=== PATIENT | male | born 1955 | race Caucasian/White ===

== ENCOUNTER → 2022-05-21 11:44 | Outpatient (CLI) | payer MEDICARE, OTHER, SELFPAY ==
--- NOTE | ~2022-05-21 | XR_ITS ---
XR hip RT min 2V DATE: 05/21/2022 12:00 INDICATION: Right hip pain, decreased range of motion. No injury. TECHNIQUE: AP and lateral views COMPARISON: None FINDINGS: There is severe right hip joint space narrowing and very prominent hypertrophic spurring of the femoral head and acetabulum, consistent with severe osteoarthritis. No fracture, dislocation, avascular necrosis or bone destruction is evident. Status post left total hip arthroplasty. The pubic symphysis and sacral lytic joints are intact. IMPRESSION: Severe right hip osteoarthritis Status post left total hip arthroplasty Reviewed, dictated and finalized at location A.
== END ==
PROVIDERS: PCP Family Medicine Adolescent Medicine; Visit Provider Family Medicine Adolescent Medicine
DX: M16.11 Unilateral primary osteoarthritis, right hip (principal)
CPT/HCPCS: 73502

== ENCOUNTER 2022-08-19 13:53 | Outpatient (CLI) | payer MEDICARE, OTHER, SELFPAY ==
--- NOTE | 2022-08-19 14:40 | ECG_ITS ---
Measurements Intervals [place] Rate: 67 P: -7 GA: 153 QRS: 91 QRSD: 95 T: 10 QT: 399 QTc: 421 Interpretive Statements SINUS RHYTHM RIGHT AXIS DEVIATION MINIMAL Q WAVES- INFERIOR LEADS BASELINE ARTIFACT- I, II, III, AVR, AVL, AVF, V1-V2 BORDERLINE ECG NO PREVIOUS ECG AVAILABLE FOR COMPARISON Electronically Signed On 08-19-2022 15:17:12 PARENT COACH by Karl Terry D.O.
[2022-08-19 15:08] LABS: Basophils Absolute Auto 0.1 K/mm3 (0.0-0.1); Basophils Percent Auto 0.7 % (0.2-1.2); Eosinophils Percent Auto 0.5 % (0-4.4); Hematocrit 42.7 % (42.0-52.0); Hemoglobin 14.2 g/dL (14.0-18.0); Immature Granulocyte Absolute 0.02 K/mm3 (0.00-0.031); Immature Granulocyte Percent A 0.3 % (0-0.5); Lymphocytes Absolute Auto 1.52 K/mm3 (0.9-3.2); Lymphocytes Percent Auto 20.2 % (18.3-44.2); Mean Corpuscular HGB Conc 33.3 g/dl (32-36); Mean Corpuscular Hemoglobin 29.8 pg (26-34); Mean Corpuscular Volume 89.7 fl (80-100); Monocytes Absolute Auto 0.6 K/mm3 (0.1-0.6); Monocytes Percent Auto 7.5 % (2.6-8.5); Neutrophils Absolute Auto 5.3 K/mm3 (1.3-6.7); Neutrophils Percent Auto 70.8 % (45.5-73.1); Platelet Count Result 240 k/mm3 (150-375); Red Blood Count 4.76 M/mm3 (4.6-6.20); Red Cell Distribution Width 13.3 % (11.5-14.5); White Blood Count 7.5 K/mm3 (4.5-10.0)
[2022-08-19 15:10] LABS: Appearance Urine Clear (Clear); Bilirubin Urine 1+ (Negative); Blood Urine Negative (Negative); Color Urine Yellow (Yellow); Glucose Urine UA Negative (Negative); Ketones Urine Trace mg/dL (Negative); Leukocyte Esterase Ur Negative LEU/UL (Negative); Nitrate Urine Negative (Negative); Protein Urine 2+ mg/dL (Negative); Specific Grav Ur >= 1.030 (1.001-1.035)
[2022-08-19 15:19] LABS: Bacteria Urine Trace /hpf; Mucus Urine Heavy /lpf; RBC Urine 0-2 /hpf (0-2); WBC Urine 0-3 /hpf
[2022-08-19 15:21] LABS: Add Urine Microscopic? YES
[2022-08-19 15:24] LABS: Albumin Level 4.5 g/dL (3.5-5.1); Anion Gap 4 mmol/L (8-16); Blood Urea Nitrogen 20 mg/dL (9-20); Calcium 8.9 mg/dL (8.4-10.2); Carbon Dioxide 29 mmol/L (22-30); Chloride 104 mmol/L (98-107); Estimated Glomerular Filt Rate > 60; Glucose 96 mg/dL (65-110); Potassium 3.8 mmol/L (3.4-5.0); Sodium 137 mmol/L (137-145)
[2022-08-19 15:27] LABS: Urine Cotinine NEGATIVE
[2022-08-19 15:33] LABS: INR 1.1; Prothrombin Time 13.4 Seconds (11.1-14.7)
[2022-08-19 15:34] LABS: Partial Thromboplastin Time 26.5 SECONDS (22.3-36.8)
[2022-08-20 05:34] LABS: Hemoglobin A1C 4.8 % (<5.7)
== END 2022-08-19 13:54 | disposition home or self-care (01) ==
PROVIDERS: PCP Family Medicine Adolescent Medicine; Visit Provider Orthopaedic Surgery
DX: Z01.818 Encounter for other preprocedural examination (principal); M16.11 Unilateral primary osteoarthritis, right hip
CPT/HCPCS: 80048; 80307; 81001; 82040; 83036; 85025; 85610; 85730; 87081; 93005

== ENCOUNTER 2022-09-03 18:53 | Observation (INO) | payer MEDICARE, OTHER, SELFPAY ==
--- NOTE | 2022-08-19 13:54 | PC.NURSE ---
PRE-OP INSTRUCTIONS, PLEASE READ CAREFULLY Report to the Outpatient Waiting Room, entrance under the green pavilion located off [facility], at time _0600_ on date _09/02/22_. Planned Procedure Time: _0730_. PACK A SMALL OVERNIGHT BAG AND LEAVE IN THE CAR ALONG WITH YOUR WALKER Time changes happen often and if your time is changed the preop area will call you the afternoon before. - You and your visitor will be asked to self-screen and do not enter if you have any COVID symptoms. - Only one visitor is requested with a max of two and NO children visitors are allowed at this time. - The patient visitor may be requested to leave or wait in car when not with patient due to distancing restrictions. - A mask is optional within the hospital at this time. -VISITING HOURS 8AM-8PM, LIMIT OF 2 VISITORS AT A TIME Patients may have clear liquids (water, carbonated beverages, clear teas, apple juice) until 3 hours prior to surgery (0430 AM) with a maximum of 20 ounces. - No food from midnight until time of surgery Take the following medications with a SIP of water the morning of surgery: _NONE_ DO NOT STOP ANY OF YOUR OTHER PRESCRIPTION MEDICATIONS PRIOR TO SURGERY ?EXCEPT THE FOLLOWING Medications to discontinue per DR. NICOLE'S INSTRUCTIONS - _IBUPROFEN_ Medications to discontinue per ANESTHESIA - _VITAMIN B COMPLEX 3 DAYS PRIOR TO SURGERY, Date to take last dose 08/29/22_ Please no make-up, nail togolese, hairspray, perfume, deodorant, or body powder the day of surgery. No jewelry (including any body piercings) or valuables the day of surgery, leave them at home. Please take a shower or bath the night before, or the morning of, surgery with an antibacterial soap. Wear comfortable, loose fitting clothing. - Jewelry must be removed prior to entering the operating room. Rings and piercings that are not removed may be cut off. - The hospital will not accept responsibility for valuables. - Please leave all valuables, including medications, at home the day of surgery. If you are going home after surgery, a licensed spotter driver must drive you home. - NO public transportation without another adult if you receive anesthesia. - We recommend that an adult stay with you for 24 hours following discharge. - We also recommend that you do not drive, make important decision, drink alcoholic beverages, or take any drugs that were not prescribed by your health care provider for at least 24 hours after your discharge time. Follow any additional instructions given to you from your surgeon. If you or anyone in your household have experienced Covid symptoms in the past week, please notify your surgeon or the nurse liaison at the phone number below for possible testing. Instructions given to _PATIENT_and asked if any additional questions and then verbalized understanding. Patient advised to call surgeon office or pre surgery nurse liaison [phone] if any additional questions.
[2022-08-19 14:20] VITALS: BP 134/68; PULSE 66; RESP 20; TEMP 37.1; O2SAT 98; BMI 27.8
--- NOTE | 2022-09-01 15:32 | WPDANESEPPF ---
Anes - Initial Pre Proc Eval Procedure: Operation Date: 09/02/22 07:30 Proposed Procedures p Right Total Hip Arthroplasty - Connor Slater MD Date/Time: 09/01/22 15:32 Surgeon: Connor Slater MD Pre Op Diagnosis: right hip DJD Patient Data Age: 66 Gender: M Height: 1.78 m Weight: 88.2 kg Last Vital Signs Temp 37.1 C 08/19/22 14:20 Pulse 66 08/19/22 14:20 Resp 20 08/19/22 14:20 BP 134/68 08/19/22 14:20 Pulse Ox 98 08/19/22 14:20 O2 Del Method Room Air 08/19/22 14:20 Allergies Allergy/AdvReac Type Severity Reaction Status Date / Time Penicillins Allergy Unknown ???REACTION Verified 09/02/22 06:05 CHILD Home Medications Medication Instructions Recorded Confirmed Type ibuprofen 200 mg capsule 200 mg PO Q6H PRN Pain 07/03/22 09/02/22 History vitamin B complex (Vitamins B 1 cap PO DAILY 07/03/22 09/02/22 History Complex capsule) coenzyme Q10 100 mg capsule 100 mg PO DAILY 08/19/22 09/02/22 History (CoQ-10) chlorhexidine gluconate 4 % 1 applic topical ONCE #237 mL 08/22/22 Rx topical liquid (Hibiclens) ECG: Date of Service: 08/19/22 Procedure(s): CA 12 lead EKG Accession Number(s): [id number] cc: ~ ? Measurements Intervals? [place]? Rate: ? 67 ? P:? -7 SC: ? 153? QRS:? 91 QRSD: ? 95 ? T:? 10 QT: ? 399? QTc:? 421? Interpretive Statements SINUS RHYTHM RIGHT AXIS DEVIATION MINIMAL Q WAVES- INFERIOR LEADS BASELINE ARTIFACT- I, II, III, AVR, AVL, AVF, V1-V2 BORDERLINE ECG NO PREVIOUS ECG AVAILABLE FOR COMPARISON Electronically Signed On 08-19-2022 15:17:12 SWISS MACHINIST by Karl Terry D.O. Patient hx anesthesia problems: none Family hx anesthesia problems: none Results Review: All pre-operative results and documents have been reviewed as part of the pre-operative evaluation. [facility] Past Medical History Medical History (Updated 09/01/22 @ 15:33 by Reginaldo Amin MD) Anxiety Chronic right hip pain Degenerative joint disease (DJD) of hip Overweight (BMI 25.0-29.9) Unilateral primary osteoarthritis, right hip Surgical History Surgical History History of left hip replacement Family History Family History Father Heart disease Hypertension Mother Lung cancer smoker Social History Social History Smoking packs per day: 1 Smoking cigarettes per day: 20.0 Years smoked: 25 Smoking pack-years: 25.00 Smoking status: Former smoker Tobacco type: cigarettes Second hand tobacco smoke exposure: No Smoking end date: 07/20/99 Additional smoking assessment comments: PT DENIES ALL FORMS OF TOBACCO USE Alcohol intake: current Drinks per week: 7 Alcohol use details: 10-14 BEERS/WEEK Substance use: never Substance use type: does not use Living arrangements: with family Occupation/Education: occupation Gender identity (if verbalized by the patient): Male Sexual Orientation (if Verbalized by the Patient): Straight or Heterosexual Spiritual care concerns: Yes Agree to blood products: Yes Anes - Eval Final PreProcedure Day of Procedure 09/01/22 15:32 Patient weight: overweight Heart: regular rate and rhythm Lungs: clear to auscultation and normal air movement Airway: Mallampati scale class II Neurological: alert and oriented Last oral intake: >/= 8 hours ASA classification: II Emergent: no Anesthetic plan: proceed Anesthesia type and monitoring: general ETT Results Review: All pre-operative results and documents have been reviewed as part of the pre-operative evaluation. In
[2022-09-02] VITALS (14 sets, daily range): BP systolic 103–147; BP diastolic 50–93; PULSE 58–81; RESP 12–20; TEMP 35.6–36.7; O2SAT 95–100; BMI 26.7
[2022-09-02] MEDS: ACETAMINOPHEN 500 MG TABLET 1000 MG PO (06:06)
[2022-09-02] MEDS: TRANEXAMIC ACID 1,000MG/ISO100 1,000 MG/100 ML BAG 200 MG IVPB (06:56)
--- NOTE | 2022-09-02 07:10 | WPDHPUPDATE1 ---
History and Physical Update Update Date/Time: 09/02/22 07:10 History and Physical has been reviewed, including an updated exam of the patient. There are NO changes in the patient's condition. Risks, benefits, and alternatives have been discussed and questions answered. Patient agrees to proceed with procedure.
[2022-09-02] MEDS: ceFAZolin 2 GM/D5W 50 ML 2 GM/50 ML BAG IVPB ×3 (07:35→23:09)
[2022-09-02] MEDS: TRANEXAMIC ACID 1,000 MG/10 ML AMPUL 1000 MG IV PUSH (09:07)
--- NOTE | 2022-09-02 09:52 | W.PM.PROC2 ---
Procedure Note - Detailed Date of Procedure 09/02/22 Pre-op Diagnosis right hip DJD Post-op Diagnosis Same Procedure Performed R MENDOZA Surgeon Connor Slater MD Anesthesia General Description of Procedure THE PATIENT WAS TAKEN TO THE OPERATING ROOM IN STABLE CONDITION AND WAS PLACED IN THE LATERAL DECUBITUS AND THE RIGHT LOWER EXTREMITY WAS PREPPED AND DRAPED IN THE STERILE FASHION. INCISION WAS MADE IN THE POSTERIOR LATERAL SIDE OF THE HIP, DOWN TO THE FASCIA LAYER. THE FASCIA WAS INCISED. THE HIP WAS EXPOSED. THE SHORT EXTERNAL ROTATORS WERE EXPOSED. THE SCIATIC NERVE WAS IDENTIFIED. INCISION WAS MADE THROUGH THE SHORT EXTERNAL ROTATORS AND THE CAPSULE OF THE HIP JOINT. THE HIP WAS DISLOCATED. AN OSTEOTOMY WAS MADE TO THE FEMORAL NECK ABOUT 1 CM PROXIMAL TO THE LESSER TROCHANTER. THE ACETABULUM WAS EXPOSED. THERE WAS SEVERE DJD SEEN. BEGINNING WITH A 50 REAMER THE ACETABULUM WAS REAMED TO 53 MM. A 53 MM TRIAL WAS PLACED IN 35 DEG OF ABDUCTION AND ANTEVERSION WAS IN ALIGNMENT WITH THE TRANS ACETABULAR LIGAMENT. THE FIT WAS EXCELLENT. THE TRIAL WAS REMOVED. A 54 MM BIOMET G7 COMPONENT WAS THEN TAPPED IN TO PLACE IN 35 DEG OF ABDUCTION AND ANTEVERSION IN ALIGNMENT WITH THE TRANSVERSE ACETABULAR LIGAMENT. THE FIT WAS EXCELLENT. THE ACETABULAR LINER WAS PLACED AND CHECKED FOR STABILITY. NEXT THE FEMUR WAS PREPARED WITH INITIAL CANAL FINDER THEN SEQUENTIAL BROACHING WITH A TAPERLOC HIP SYSTEM, UNTIL A 10 BROACH FIT WELL IN 15 OF ANTEVERSION. A 0 HIGH OFFSET NECK WITH 36 MM HEAD TRIAL WAS PLACED. THE SHUCK TEST WAS EXCELLENT AND THE STABILITY IN FLEXION AND ROTATION WAS EXCELLENT. LEG LENGTHS WERE GROSSLY EQUAL. TRIALS WERE REMOVED. A BIOMET TAPERLOC 10 STEM WAS PLACED WITH A HIGH OFFSET NECK. THE FIT WAS EXCELLENT IN 15 DEG OF ANTEVERSION. A 0 CERAMIC 36 MM FEMORAL HEAD WAS PLACED. THE HIP WAS TRIALED AND THE STABILITY WAS EXCELLENT WERE THE LEG LENGTHS AND THE SHUCK TEST. THE WOUND WAS IRRIGATED WITH STERILE BETADINE AND WATER FOR 3 MIN. THEN WASHED AGAIN. THE SCIATIC NERVE WAS IDENTIFIED AGAIN. THE CAPSULE AND THE EXTERNAL ROTATORS WERE APPROXIMATED WITH NUMBER 1 VICRYL. THE FASCIA WITH No 2 QUIL AND THE SUB CUTANEOUS LAYER WITH 2-0 ABSORBABLE SUTURE AND A RUNNING 3-0 SUBCUTICULAR STITCH FOR THE SKIN. DERMABOND WAS PLACED AND STERILE DRESSING WAS APPLIED. PATIENT WAS PLACED BACK ON TO THE SUPINE POSITION AND WAS EXTUBATED Estimated Blood Loss -150.0 Complications No immediate complications Condition Stable Disposition PACU
[2022-09-02] MEDS: LACTATED RINGERS 1,000 ML 30 ML IV CONT ×2 (10:00)
[2022-09-02] MEDS: fentaNYL CITRATE INJ (*CRX) 100 MCG/2 ML VIAL 25 MCG IV PUSH ×3 (10:24→10:52)
[2022-09-02] MEDS: ONDANSETRON INJ 4 MG/2 ML VIAL IV PUSH ×2 (11:46→15:15)
--- NOTE | 2022-09-02 12:02 | ADMGEN ---
This patient, Peter Felton, was admitted to [facility] Surg Room 302-01. Report received from Mitchell (OR/RN). Patient/family oriented to hospital policies and general routines including ID bracelet, bed and alarms, visiting hours, pain management, procedures, bathroom and other care routines, personal items, smoking policy, room service/diet, and visiting hours. Information on how to activate the Rapid Response Team has been discussed. Patient/Family are encouraged to report perceived risks to care and to ask questions if they do not understand what they are told or what they should do.
[2022-09-02] MEDS: KETOROLAC 15 MG/ML VIAL (*BKC) IV PUSH ×3 (13:15→23:10)
[2022-09-02] MEDS: SODIUM CHLORIDE 0.9% IV 1,000 ML 80 ML IV CONT (15:16)
[2022-09-02] MEDS: SENNA/DOCUSATE SODIUM TABLET 2 TAB PO (16:57)
[2022-09-02] MEDS: HYDROcodone/acetaminophen (*CRX) 7.5-325 MG TABLET 1 TAB PO (20:42)
[2022-09-02] MEDS: ASPIRIN 325 MG ENTERIC TABLET PO (20:43)
--- NOTE | ~2022-09-03 | XR_ITS ---
EXAMINATION: XR hip RT min 2V DATE: 09/02/2022 10:15 INDICATION: Total right hip arthroplasty. Postop. TECHNIQUE: 2 views of right hip were obtained. COMPARISON: Right hip radiographs 09/01/2022. FINDINGS: There is a total right hip arthroplasty in near-anatomic alignment. No fracture. There is g as in the soft tissues, consistent with recent surgery. IMPRESSION: 1. Total right hip arthroplasty in near-anatomic alignment. Reviewed, dictated and finalized at location A. ENT NAVIGATOR
[2022-09-03 01:09] VITALS: BP 112/63; PULSE 62; RESP 16; TEMP 36.4; O2SAT 98
[2022-09-03 05:09] VITALS: BP 99/52; PULSE 68; RESP 16; TEMP 36.8; O2SAT 98
[2022-09-03] MEDS: SODIUM CHLORIDE 0.9% IV 1,000 ML 80 ML IV CONT (05:45)
[2022-09-03] MEDS: ceFAZolin 2 GM/D5W 50 ML 2 GM/50 ML BAG IVPB (05:46)
[2022-09-03] MEDS: KETOROLAC 15 MG/ML VIAL (*BKC) IV PUSH ×2 (05:46→11:19)
[2022-09-03] MEDS: ACETAMINOPHEN 325 MG TABLET 650 MG PO (05:48)
[2022-09-03 07:44] LABS: Anion Gap 3 mmol/L (8-16); Blood Urea Nitrogen 20 mg/dL (9-20); Calcium 7.7 mg/dL (8.4-10.2); Carbon Dioxide 26 mmol/L (22-30); Chloride 107 mmol/L (98-107); Estimated CRCL calculation 61 ml/min; Estimated Glomerular Filt Rate > 60; Glucose 104 mg/dL (65-110); Potassium 4.2 mmol/L (3.4-5.0); Sodium 136 mmol/L (137-145)
[2022-09-03 07:55] LABS: Basophils Percent Auto 0.2 % (0.2-1.2); Hematocrit 31.6 % (42.0-52.0); Hemoglobin 10.7 g/dL (14.0-18.0); Immature Granulocyte Absolute 0.03 K/mm3 (0.00-0.031); Immature Granulocyte Percent A 0.3 % (0-0.5); Lymphocytes Absolute Auto 1.13 K/mm3 (0.9-3.2); Lymphocytes Percent Auto 11.7 % (18.3-44.2); Mean Corpuscular HGB Conc 33.9 g/dl (32-36); Mean Corpuscular Volume 88.5 fl (80-100); Mean Platelet Volume 9.7 fl (7.4-10.4); Monocytes Absolute Auto 0.8 K/mm3 (0.1-0.6); Monocytes Percent Auto 8.3 % (2.6-8.5); Neutrophils Absolute Auto 7.7 K/mm3 (1.3-6.7); Neutrophils Percent Auto 79.5 % (45.5-73.1); Platelet Count Result 170 k/mm3 (150-375); Red Blood Count 3.57 M/mm3 (4.6-6.20); Red Cell Distribution Width 13.3 % (11.5-14.5); White Blood Count 9.6 K/mm3 (4.5-10.0)
--- NOTE | 2022-09-03 08:04 | WPDANESPN ---
Anes - Prog Note Post-Op Date/Time: 09/03/22 08:04 Cardiovascular status: normal Respiratory status: normal Airway patency: baseline Mental status: baseline Post-Op hydration status: normal Vital Signs: Last Vital Signs Temp 36.8 C 09/03/22 05:09 Pulse 68 09/03/22 05:09 Resp 16 09/03/22 05:09 BP 99/52 L 09/03/22 05:09 Pulse Ox 98 09/03/22 05:09 O2 Del Method Room Air 09/02/22 13:18 O2 Flow Rate 6 09/02/22 10:30 Pain Score (VAS): 2 MILD HEADACHE I/O: Intake & Output 09/02/22 09/03/22 09/03/22 23:59 07:59 15:59 Intake Total 520 2280 Balance 520 2280 Laboratory Tests 09/03/22 06:41 09/03/22 06:41 09/03/22 09/03/22 06:41 06:41 WBC 9.6 RBC 3.57 L Hgb 10.7 L D Hct 31.6 L MCV 88.5 MCH 30.0 MCHC 33.9 RDW 13.3 Plt Count 170 MPV 9.7 Immature Gran % (Auto) 0.3 Neut % (Auto) 79.5 H Lymph % (Auto) 11.7 L [place] % (Auto) 8.3 Eos % (Auto) 0.0 Baso % (Auto) 0.2 Lymph # (Auto) 1.13 [place] # (Auto) 0.8 H Eos # (Auto) 0.0 Baso # (Auto) 0.0 Abs Immat Gran (auto) 0.03 Absolute Neuts (auto) 7.7 H Absolute Nucleated RBC 0.0 Nucleated RBC % 0.0 Sodium 136 L Potassium 4.2 Chloride 107 Carbon Dioxide 26 Anion Gap 3 L BUN 20 Creatinine 1.10 Estim Creat Clear Calc 61 Estimated GFR > 60 Glucose 104 Calcium 7.7 L Post-procedural complaints: none Patient Feedback: Patient satisfied with anesthetic care.
[2022-09-03] MEDS: SENNA/DOCUSATE SODIUM TABLET 2 TAB PO ×2 (08:41→17:11)
[2022-09-03] MEDS: VITAMIN B COMPLEX CAPSULE 1 CAP PO (08:41)
[2022-09-03] MEDS: polyethylene glycoL 3350 17 GM POWD.PACK PO (08:41)
[2022-09-03] MEDS: ASPIRIN 325 MG ENTERIC TABLET PO ×2 (08:41→19:56)
[2022-09-03 13:46] VITALS: BP 102/59; PULSE 74; RESP 16; TEMP 37.2; O2SAT 97
[2022-09-03] MEDS: HYDROcodone/acetaminophen (*CRX) 7.5-325 MG TABLET 1 TAB PO (17:13)
--- NOTE | 2022-09-03 20:03 | PM.PNORT ---
Progress Note: A&P Assessment and Plan (1) S/P total hip arthroplasty: Code(s): Z96.649 - Presence of unspecified artificial hip joint Status: Acute Assessment and Plan: POD 1 DOING WELL. OK TO DC HOME F/U IN 3 WEEKSD Subjective Subjective Date/Time Seen: 09/03/22 20:03 POD 1 DOING WELL. NO CALF PAIN. UIP AND ABOUT WITH PT WITH GOOD PROGRESS Exam Extrem: Other: VSS AFEBRILE DRESSING DRY NV INTACT NEG HOMANS SIGN, CALF SOFT NON TENDER Objective Data Vital Signs Vital Signs: Vital Signs - 24 hr 09/02/22 21:09 09/03/22 01:09 09/03/22 05:09 Temperature 36.7 C 36.4 C L 36.8 C Pulse Rate 66 62 68 Respiratory Rate 18 16 16 Blood Pressure 103/52 L 112/63 99/52 L Pulse Oximetry 97 98 98 Oxygen Delivery 09/03/22 08:00 09/03/22 13:46 Temperature 37.2 C Pulse Rate 74 Respiratory Rate 16 Blood Pressure 102/59 L Pulse Oximetry 97 Oxygen Delivery Room Air Intake/Output Intake/Output: Intake & Output 08/31/22 09/01/22 09/02/22 09/03/22 23:59 23:59 23:59 23:59 Intake Total 970 4420 Balance 970 4420 Meds/Results Medications: Active Medications Generic Name Dose Route Start Last Admin Trade Name Freq PRN Reason Stop Dose Admin Acetaminophen 650 mg 09/02/22 11:24 09/03/22 05:48 Acetaminophen 325 Mg Tablet PO 650 mg Q6H PRN Administration Mild Pain (1-3) or Fever Hydrocodone Bitart/Acetaminophen 1 tab 09/02/22 11:24 09/03/22 17:13 Hydrocodone/Acetaminophen (*Crx) 7.5-325 Mg Tablet PO 1 tab Q3H PRN Administration Pain Rated 4-6 Hydrocodone Bitart/Acetaminophen 2 tab 09/02/22 11:24 Hydrocodone/Acetaminophen (*Crx) 7.5-325 Mg Tablet PO Q6H PRN Pain Rated 7-10 Aspirin 325 mg 09/02/22 21:00 09/03/22 19:56 Aspirin 325 Mg Enteric Tablet PO 325 mg Q12HR KIMBERLEY Administration Diazepam 5 mg 09/02/22 11:24 Diazepam (*Crx) 5 Mg Tablet PO Q6H PRN Anxiety/Muscle Spasm Hydroxyzine HCl 50 mg 09/02/22 11:24 Hydroxyzine Hcl 25 Mg Tablet PO Q4H PRN Itching Sodium Chloride 1,000 mls @ 80 mls/hr 09/02/22 15:00 09/03/22 18:27 Normal Saline Iv IV CONT Not Given .[id number] KIMBERLEY Naloxone HCl 0.1 mg 09/02/22 11:24 Naloxone Hcl 0.4 Mg/Ml Vial IV PUSH Q2M PRN Opiate Reversal Ondansetron HCl 4 mg 09/02/22 11:24 09/02/22 11:46 Ondansetron Inj 4 Mg/2 Ml Vial IV PUSH 4 mg Q4H PRN Administration Nausea And Vomiting Polyethylene Glycol 17 gm 09/03/22 09:00 09/03/22 08:41 Polyethylene Glycol 3350 17 Gm Powd.Pack PO 17 gm QAM KIMBERLEY Administration Senna/Docusate Sodium 2 tab 09/02/22 17:00 09/03/22 17:11 Senna/Docusate Sodium Tablet PO 2 tab BID KIMBERLEY Administration Vitamin B Complex 1 cap 09/03/22 09:00 09/03/22 08:41 Vitamin B Complex Capsule PO 1 cap DAILY KIMBERLEY Administration Radiology Results: ITS Impressions Hip X-Ray 09/02/22 10:24 IMPRESSION: 1. Total right hip arthroplasty in near-anatomic alignment. Labs Labs: Laboratory Results - last 24 hr 09/03/22 09/03/22 06:41 06:41 WBC 9.6 RBC 3.57 L Hgb 10.7 L D Hct 31.6 L MCV 88.5 MCH 30.0 MCHC 33.9 RDW 13.3 Plt Count 170 MPV 9.7 Immature Gran % (Auto) 0.3 Neut % (Auto) 79.5 H Lymph % (Auto) 11.7 L [place] % (Auto) 8.3 Eos % (Auto) 0.0 Baso % (Auto) 0.2 Lymph # (Auto) 1.13 [place] # (Auto) 0.8 H Eos # (Auto) 0.0 Baso # (Auto) 0.0 Abs Immat Gran (auto) 0.03 Absolute Neuts (auto) 7.7 H Absolute Nucleated RBC 0.0 Nucleated RBC % 0.0 Sodium 136 L Potassium 4.2 Chloride 107 Carbon Dioxide 26 Anion Gap 3 L BUN 20 Creatinine 1.10 Estim Creat Clear Calc 61 Estimated GFR > 60 Glucose 104 Calcium 7.7 L
--- NOTE | 2022-09-03 20:05 | PM.DS ---
DS: Admitting Diagnosis Discharge Date 08/03/21 Admitting Diagnosis RIGHT HIP DJD DS: Discharge Diagnosis Discharge Diagnosis (1) S/P total hip arthroplasty: Code(s): Z96.649 - Presence of unspecified artificial hip joint Status: Acute DS: Summary Hospital Course Reason for hospitalization: R MENDOZA Hospital Course: PATIENT WAS ADMITTED S/P TOTAL HIP ARTHROPLASTY FOR POSTOPERATIVE MEDICAL MANAGEMENT, PAIN CONTROL AND MOBILIZATION WITH PHYSICAL AND OCCUPATIONAL THERAPY. THE PATIENT PROGRESSED WELL WITH PT/OT. LABS AND VITALS REMAINED STABLE AND PAIN WELL CONTROLLED. THE PATIENT HAS BEEN CLEARED TO BE DISCHARGED HOME. FOLLOW UP APPOINTMENT SCHEDULED. DISCHARGE INSTRUCTIONS DISCUSSED AT LENGTH WITH THE PATIENT. MEDICATIONS REVIEWED. Status at Discharge Cognitive/behavioral status at discharge: STABLE Functional status at discharge: uses cane/walker Time Spent with Patient Time attestation: Total time spent providing and/or coordinating discharge services: DS: Data Data Completed and Pending Labs on day of discharge: Labs from last 24 hours 09/03/22 09/03/22 06:41 06:41 WBC 9.6 RBC 3.57 L Hgb 10.7 L D Hct 31.6 L MCV 88.5 MCH 30.0 MCHC 33.9 RDW 13.3 Plt Count 170 MPV 9.7 Immature Gran % (Auto) 0.3 Neut % (Auto) 79.5 H Lymph % (Auto) 11.7 L [place] % (Auto) 8.3 Eos % (Auto) 0.0 Baso % (Auto) 0.2 Lymph # (Auto) 1.13 [place] # (Auto) 0.8 H Eos # (Auto) 0.0 Baso # (Auto) 0.0 Abs Immat Gran (auto) 0.03 Absolute Neuts (auto) 7.7 H Absolute Nucleated RBC 0.0 Nucleated RBC % 0.0 Sodium 136 L Potassium 4.2 Chloride 107 Carbon Dioxide 26 Anion Gap 3 L BUN 20 Creatinine 1.10 Estim Creat Clear Calc 61 Estimated GFR > 60 Glucose 104 Calcium 7.7 L Discharge Plan Discharge Attending physician on discharge: Connor Slater Discharging Clinician: Connor Slater Patient Disposition: Home, Self-Care Activity: may shower, no driving and follow weight bearing status Diet: as tolerated Wound Care Instructions: follow printed instructions and keep dressing dry Discharge Instructions: Per Care Coordination, patient to discharge with [facility] ([phone]) for PT/OT and assisted services. Agency will call to schedule initial visit. Post Op Total Hip Replacement Instructions Dr. Connor Slater [phone] Your dressing will be changed prior to your discharge. You will be sent home with one additional dressing to be changed on post op day 7 by the home health RN. You may remove the dressing on post op day 14. Your incision was closed with dermabond, allow the dermabond to fall off naturally once your dressing is removed. Do not pull at the dermabond or disrupt incision healing. You may shower with your dressing but do not submerge in a bath tub. Do not drive or operate machinery until you are released by Dr. Slater. Do not walk without a walker for any reason until you are released by Dr. Slater. Continue to apply ice to the hip intermittently for additional pain relief. Protect your skin with a towel or pillow case. Continue to follow strict total hip replacement precautions. Your first post op appointment was sent to you via mail preoperatively. If you have any questions or are unable to make your appointment, please contact our office for scheduling questions. Your medications have been sent to your pharmacy. You have been sent home with pain medication. We have also sent you with a stool softener as narcotics can cause constipation. Please keep this in mind during your postoperative recovery. If you are not experiencing regular bowel movements, please contact our office for further instructions. Please contact our office with any questions/concerns regarding your hip at [phone]. CONNOR SLATER M.D. [facility] [address] [place] [address] [phone]
== END 2022-09-03 21:03 | disposition home or self-care (01) ==
LOC: ANHSURGERY 19:01 → ANH3MEDSUR 19:01
PROVIDERS: Admitting Provider Orthopaedic Surgery; PCP Family Medicine Adolescent Medicine; Visit Provider Orthopaedic Surgery
PROC: (CPT 27130; principal; 2022-09-02 07:30)
DX: M16.11 Unilateral primary osteoarthritis, right hip (principal); F41.9 Anxiety disorder, unspecified; E66.3 Overweight; F10.90 Alcohol use, unspecified, uncomplicated; Z68.26 Body mass index [BMI] 26.0-26.9, adult; Z96.642 Presence of left artificial hip joint; Z87.891 Personal history of nicotine dependence
CPT/HCPCS: 27130; 36415; 73502; 80048; 85025; 86850; 86900; 86901; 97110; 97116; 97161; 97165; 97530; 97535; 97750; A9270; C1713; C1776; G0378; G0379; J0171; J0690; J1100; J1170; J1885; J2250; J2270; J2405; J2704; J2795; J3010; J7030; J7120

== ENCOUNTER 2024-04-11 09:47 | Outpatient (CLI) | payer MEDICARE, OTHER, SELFPAY ==
--- NOTE | ~2024-04-11 | XR_ITS ---
AP view of the pelvis and AP and lateral views of the right hip Clinical history: Pain Findings: No acute fracture or dislocation is seen. Bilateral hip arthroplasties are present. No hard montesinos complication is evident. Soft tissues are unremarkable. Impression: No acute abnormality. Bilateral hip arthroplasties. Reviewed, dictated and finalized at location . Impression: No acute abnormality. Bilateral hip arthroplasties.
== END 2024-04-11 09:48 | disposition home or self-care (01) ==
PROVIDERS: PCP Family Medicine Adolescent Medicine; Visit Provider Nurse Practitioner Family
DX: Z96.641 Presence of right artificial hip joint (principal)
CPT/HCPCS: 73502

== ENCOUNTER 2024-04-17 10:07 | Emergency (ER) | payer MEDICARE, OTHER, SELFPAY ==
[2024-04-17 10:08] VITALS: BP 124/71; RESP 16; TEMP 36.6; O2SAT 100
--- NOTE | 2024-04-17 13:00 | PC.NURSE ---
Pt to desk to say they are going home. A&Ox4 in no distress.
== END 2024-04-17 13:31 | disposition left against medical advice (07) ==
PROVIDERS: PCP Family Medicine Adolescent Medicine
DX: R10.9 Unspecified abdominal pain (principal)
CPT/HCPCS: 99199

== ENCOUNTER 2024-08-10 07:00 | Outpatient (CLI) | payer MEDICARE, OTHER, SELFPAY ==
--- NOTE | ~2024-08-10 | MR_ITS ---
MRI of the right hip Clinical history: Pain Technique: Coronal T1-weighted, T2-weighted, and STIR images, and axial T1-weighted and STIR images w ere acquired through the pelvis. Coronal T2-weighted images and coronal, axial, and sagittal proton-d ensity fat-sat images were acquired through the right hip. Findings: There are bilateral hip arthroplasties in place with associated hardware artifact. No acute fracture or dislocation evident. Visualized bone marrow signals are unremarkable. Visualized musculature about the pelvis and right hip is unremarkable. No muscle/edema seen. Visually tendons are intact. There is apparent incomplete descent of the right testis which appears to be located in the relativel y distal right inguinal canal. No other abnormal mass lesion identified in the inguinal regions. 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 Bilateral hip arthroplasties. Reviewed, dictated and finalized at [facility]. 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 Bilateral hip arthroplasties.
== END 2024-08-10 07:01 | disposition home or self-care (01) ==
LOC: MICIMG 07:01
PROVIDERS: PCP Family Medicine Adolescent Medicine; Visit Provider Family Medicine Adolescent Medicine
DX: R10.31 Right lower quadrant pain (principal)
CPT/HCPCS: 73721